=== PATIENT | female | born 1980 | race Caucasian/White ===

== ENCOUNTER → 2018-02-26 02:16 | Outpatient (CLI) | payer BC, SELFPAY ==
--- NOTE | 2018-02-26 14:06 | DI.REPORT_ITS ---
SYMPTOMS/DIAGNOSIS: ELDERLY MULTIGRAVIDA IN SECOND TRIMESTER, O09.522 OBSTETRICAL ULTRASOUND: Many abnormalities cannot be diagnosed. A normal exam does not exclude a congenital anomaly. Radiology No. [id number] LMP: Exam Date: 02/26/18 [facility] wks days on EDC ([facility]) 07/20/18 Confirmed: HISTORY: ---- PREDICTED GESTATIONAL AGE NUMBER 19+3 weeks with a range of 18+3 weeks to 20+3 weeks. 1 Determined by_X__1ST US___LMP___HISTORY PLACENTA PRESENTATION Grade I Cephalic_X__ Anterior___Posterior_X__ Breech____ Right Left Transverse(head right___ Fundal___Low-lying___Previa___ Transverse(head left___ Varying BIOMETRY AMNIOTIC FLUID BPD: 42 mm 18+4 weeks Normal HC: 162 mm 19 weeks AC: 134 mm 18+6 weeks FL: 31 mm 19+4 weeks AMNIOTIC FLUID INDEX >26 WK CRL: mm weeks Cisterna Magna: 4.4 mm CI: 79 RUQ: LUQ Cerebellum: 2.01 cm EFW: 277 grams Percentile: 30th RLQ: LLQ Total: cms Composite AGE= 19 wks EDC by US: 07/23/18 BIOPHYSICAL PROFILE ANATOMY IDENTIFIED SCORE 0/2 Heart: 4-Chamber_X__Rate:BPM 145 LVOT:____X RVOT:__X Amniotic Fluid(>2cms)____ Stomach:___X____ Kidneys:__X Respirations (>30 secs) Bladder:____X____ Post. Fossa:__X Body Flex/Extension 3-vessel cord:_X Ventricles:____X Cord insertion:__X___ Lips:__X__ Extremity Flex/Extension Spinal morphology:____X____Nose:_X___ Total Score= Palate:__X NS=not seen COMMENTS: There is a single living intrauterine gestation. Estimated sonographic age is 19 weeks. No or placental abnormalities are identified. Please refer to the obstetrical ultrasound examination report for complete details. IMPRESSION: Single living intrauterine gestation. Estimated sonographic age is 19 weeks.
== END ==
PROVIDERS: PCP Internal Medicine; Visit Provider Obstetrics & Gynecology
DX: O09.522 Supervision of elderly multigravida, second trimester (principal)
CPT/HCPCS: 76805

== ENCOUNTER 2018-04-30 09:27 | Outpatient (CLI) | payer BC, SELFPAY ==
[2018-04-30 10:02] LABS: HCT 34.9 % (36.0-46.0); HGB 11.9 g/dL (12.0-15.5); Mean Corp. HGB Concentration 34.1 g/dL (32.0-36.0); Mean Corpuscular Hemoglobin 31.4 pg (27.0-33.0); Mean Corpuscular Volume 92.1 fL (80-95); Mean Platelet Volume 11.1 fL (8.0-11.0); Platelet Count 162 x1000/uL (130-400); RBC 3.79 m/cumm (4.00-5.20); RBC Distribution Width 13.8 % (11.7-14.6); White Blood Cell Count 6.56 k/cumm (4.4-10.8)
[2018-04-30 10:10] LABS: Glucose,1 Hr (Glucola) 133 mg/dL (80-140)
== END 2018-04-30 09:47 ==
PROVIDERS: PCP Internal Medicine; Visit Provider Obstetrics & Gynecology Gynecology
DX: O34.219 Maternal care for unspecified type scar from previous cesarean delivery (principal); O09.529 Supervision of elderly multigravida, unspecified trimester
CPT/HCPCS: 36415; 82950; 85027; 86003; 86850; 86900; 86901; 90384

== ENCOUNTER 2018-06-27 17:18 | Outpatient (REF) | payer BC, SELFPAY | END 2018-06-27 17:38 | LOC: LBN 17:18 | PROVIDERS: PCP Internal Medicine; Visit Provider Obstetrics & Gynecology | DX: O34.219 Maternal care for unspecified type scar from previous cesarean delivery (principal); Z36.85 Encounter for antenatal screening for Streptococcus B | CPT/HCPCS: 87081 ==

== ENCOUNTER 2018-07-09 11:47 | Outpatient (CLI) | payer BC, SELFPAY | END 2018-07-09 12:07 | PROVIDERS: PCP Internal Medicine; Visit Provider Obstetrics & Gynecology | DX: O34.219 Maternal care for unspecified type scar from previous cesarean delivery (principal); Z34.93 Encounter for supervision of normal pregnancy, unspecified, third trimester; Z01.818 Encounter for other preprocedural examination ==

== ENCOUNTER 2018-07-15 11:54 | Outpatient (CLI) | payer BC, SELFPAY ==
[2018-07-15 12:24] LABS: HCT 34.9 % (36.0-46.0); Mean Corp. HGB Concentration 34.4 g/dL (32.0-36.0); Mean Corpuscular Hemoglobin 31.8 pg (27.0-33.0); Mean Corpuscular Volume 92.6 fL (80-95); Mean Platelet Volume 11.9 fL (8.0-11.0); Platelet Count 159 x1000/uL (130-400); RBC 3.77 m/cumm (4.00-5.20); RBC Distribution Width 13.6 % (11.7-14.6)
== END 2018-07-15 12:14 ==
PROVIDERS: PCP Internal Medicine; Visit Provider Obstetrics & Gynecology
DX: O34.219 Maternal care for unspecified type scar from previous cesarean delivery (principal); Z01.818 Encounter for other preprocedural examination
CPT/HCPCS: 36415; 85027; 86850; 86900; 86901

== ENCOUNTER 2018-07-16 05:59 | Inpatient (IN) | payer BC, SELFPAY ==
[2018-07-09 12:09] VITALS: BP 122/77; PULSE 94; RESP 18; TEMP 37; O2SAT 97
--- NOTE | 2018-07-15 11:49 | W.PM.HP.N ---
Assessment and Plan (1) Previous delivery, antepartum: Current visit: No Status: Acute (2) Advanced maternal age (AMA) in : Current visit: No Status: Acute (3) Rh negative state in antepartum period: Current visit: No Status: Acute 38 yo RCS r/b/a discussed consent reviewed and signed Rh negative will need rhogham if Rh + History of Present Illness Chief Complaint: RCS Narrative: 38 yo 39+ weeks scheduled for repeat section had counselling re: r/b/a TOLAC vs RCS patient opted for RCS consent signed Review of Systems Review of Systems All systems reviewed & are unremarkable except as noted in HPI and below PFSH Social History Smoking/Tobacco Use Status: Current every day History History 3 Para 1 Hx # Term Pregnancies 1 Multiple births 0 Hx # Pregnancies 0 Ectopic pregnancies 0 AB induced 0 Hx Number of Living Children AB spontaneous 0 Meds Home Medications Medication Instructions Recorded Confirmed Type pediatric multivitamin no.42 2 ea PO DAILY tab.chew 01/08/18 07/09/18 History [[facility]kleber] RhoGAM Ultra-Filtered PLUS 1,500 1,500 unit IM ONCE #1 each NS 05/01/18 07/09/18 Clinic unit (300 mcg) intramuscular syringe calcium carbonate [Tums] 400 mg PO QID 07/09/18 07/15/18 History Allergies Allergy/AdvReac Type Severity Reaction Status Date / Time No Known Drug Allergies Allergy Verified 07/15/18 11:15 Exam Const General: cooperative and healthy appearing Orientation: alert and awake Chest Chest: normal inspection of the chest Resp Effort & Inspection: normal respiratory effort Auscultation: clear to auscultation bilaterally Cardio Rate: regular rate Rhythm: regular rhythm Heart Sounds: S1 normal and S2 normal GI Inspection: other (gravid soft nt/nd fundal height 40 cm) Palpation: other Skin General skin exam: no rashes or lesions noted Neuro General: alert and awake Cranial Nerves: CN's II-XI intact bilaterally Cognition: normal cognition Speech: speech normal Gait: normal gait Extrem General: normal to inspection Results Last Vital Signs Temp 37 C 07/09/18 12:09 Pulse 94 H 07/09/18 12:09 Resp 18 07/09/18 12:09 BP 122/77 07/09/18 12:09 Pulse Ox 97 07/09/18 12:09
[2018-07-16 06:14] VITALS: BP 121/79; PULSE 87; RESP 18; TEMP 35.5; O2SAT 96
[2018-07-16 06:18] VITALS: BP 121/79; PULSE 87; RESP 18; TEMP 35.5; O2SAT 96
[2018-07-16] MEDS: Lactated Ringers 1,000 ML 125 ML IV (06:46)
[2018-07-16] MEDS: Methylergonovine 0.2 MG/ML VIAL (08:09)
[2018-07-16] MEDS: Scopolamine 1 MG/3 DAYS PATCH 1.5 MG TD (10:36)
[2018-07-16] MEDS: Normal Saline Flush 10 ML SYR IVP ×5 (11:41→23:40)
[2018-07-16] MEDS: Ketorolac 30 MG/ML VIAL IVP ×3 (11:42→23:40)
[2018-07-16] MEDS: Ondansetron 4 MG/2 ML VIAL IVP (12:32)
[2018-07-16] MEDS: Calcium Carbonate *TUMS* 500 MG CHEW PO (13:22)
[2018-07-16] MEDS: Lactated Ringers 1,000 ML 120 ML IV (15:09)
[2018-07-16] MEDS: Metoclopramide 10 MG/2 ML VIAL IVP (16:15)
--- NOTE | 2018-07-16 17:01 | ROE_ITS ---
DATE OF PROCEDURE: July 16, 2018 PREOPERATIVE DIAGNOSIS: Prior section, desires elective repeat. POSTOPERATIVE DIAGNOSIS: Same. PROCEDURE: Repeat section low transverse. SURGEON: Sarahi Bonilla M.D. STITCHER SPECIAL MACHINE: Melania Franklin M.D. ANESTHESIA: Spinal. COMPLICATIONS: None. ESTIMATED BLOOD LOSS: 900 cc FLUIDS: 1000 cc LR. URINE OUTPUT: 50 cc COMPLICATIONS: None. FINDINGS: Normal uterus, ovaries, and tubes; viable male infant 3420 grams (7 pounds 9 ounces), Apga rs 8 and 9. PROCEDURE: The patient was taken to the Operating Room where she was properly identified. She was t hen placed in the sitting position and spinal anesthesia was induced without difficulty. The patient was then placed on the operating table in a dorsal supine position with a left lateral tilt. A Fole y catheter was placed and SCD boots were applied. The patient was then prepped and draped. A formal time-out procedure was then performed with all surgical personnel present, confirming patient and pr ocedure. After establishing adequate spinal anesthesia, a Pfannenstiel incision was made approximately 2 cm ab ove the symphysis pubis along the prior scar and carried down to the underlying fascia. The fascia was nicked in the midline and extended sharply bilaterally. The inferior aspect of the fasci a was then grasped bilaterally with the Dia clamps, tented up, and the rectus muscles dissected of f sharply. Attention was turned to the superior aspect and, again, in a similar fashion was grasped bilaterally with Dia clamps, tented up, and the rectus muscles dissected off sharply. The rectus muscles were in the midline. The peritoneum was entered sharply. This was extended superi or inferiorly with good visualization of the bladder. The bladder blade was then positioned. The ve sicouterine peritoneum was grasped with the pickups and entered sharply, the bladder flap was created both sharply and digitally, and the bladder blade was reposition. The lower uterine segment was transversely incised to the underlying uterine cavity. The membranes w ere ruptured for clear fluid and the uterine incision was extended manually. Upon delivering the inf ant's head, the 's head was floating. It was brought to the incision. There was a nuchal cord . A Cherney incision was made on the right rectus muscle, however, the 's vertex did not deliv er. Thus, a Kiwi vacuum was applied to assist delivery of the 's head atraumatically, and shou lders and body followed with ease. The nuchal cord was easily reduced x1. The cord was clamped x2, cut, and the handed off to the [facility] .D. The placenta was manually expressed. The uterus was exteriorized and cleaned of all clots and debris . The uterine incision was closed with #0 Vicryl in a running locked fashion. A second imbricating layer was used to achieve hemostasis. The uterus was slightly boggy, thus the patient received 0.2 m g of subcu Methergine. Upon inspection of the uterine incision, there was bleeding in the midline wh ich was made hemostatic with two interrupted sutures in a [id number] fashion of #0 Vicryl in the midline. The incision was reinspected and found to be hemostatic. The uterus was returned to the a bdomen. The gutters were cleared of all clots and debris. The uterine incision was reinspected and found to be hemostatic. All of the equipment was removed from the abdomen. The peritoneum was closed with #2-0 Vicryl in a running fashion. The muscle was inspected as well as the subfascial layer and found to be hemostatic. The horizontal Cherney incision on the right rectu s muscles was repaired with #0 Vicryl in an interrupted fashion. The muscle was reapproximated with #0 Vicryl x4. The muscle again was reinspected. The subfascial layer was reinspected and found to b e hemostatic. The fascia was closed from each apex and tied in the middle. The subcuticular layer w as copiously irrigated and required a small amount of Bovie cautery to achieve hemostasis. The subcu ticular layer was closed with #3-0 plain in an interrupted fashion and the skin was closed with #4-0 Monocryl on a Addison needle in a subcuticular fashion. Sponge, lap, needle, and instrument counts were correct x2. The patient was taken to Recovery in sta ble condition.
[2018-07-17] MEDS: Ketorolac 30 MG/ML VIAL IVP (04:50)
[2018-07-17 10:23] LABS: HCT 31.8 % (36.0-46.0); HGB 10.7 g/dL (12.0-15.5); Mean Corp. HGB Concentration 33.6 g/dL (32.0-36.0); Mean Corpuscular Hemoglobin 31.4 pg (27.0-33.0); Mean Corpuscular Volume 93.3 fL (80-95); Mean Platelet Volume 12.3 fL (8.0-11.0); Platelet Count 186 x1000/uL (130-400); RBC 3.41 m/cumm (4.00-5.20); RBC Distribution Width 13.4 % (11.7-14.6); White Blood Cell Count 10.91 k/cumm (4.4-10.8)
[2018-07-17] MEDS: Ibuprofen 600 MG TAB PO ×2 (11:38→17:58)
[2018-07-17] MEDS: Acetaminophen 325 MG TAB 650 MG PO (20:03)
--- NOTE | 2018-07-18 07:46 | DSE_ITS ---
Date of service: 07/18/18 Time of Service: 07:44 DS: Diagnosis Discharge Diagnosis (1) Previous delivery, antepartum: Status: Acute (2) Advanced maternal age (AMA) in : Status: Acute (3) Rh negative state in antepartum period: Status: Acute Discharge Plan Disposition Patient Disposition: HOME Condition: Good Discharge Details Admit Date/Time: 07/16/18 05:59 Admit Provider: Sarahi Bonilla Attending Provider: Sarahi Bonilla Primary Care Provider: Luz Elena Barger Home Meds and New Rx's Prescriptions: No Action RhoGAM Ultra-Filtered PLUS 1,500 unit (300 mcg) syringe 1,500 unit IM ONCE Qty: 1 RF: 0 Flintstones Sour Gummies 1 EACH tablet,chewable 2 ea PO DAILY RF: 0 calcium carbonate [Tums] 200 mg calcium (500 mg) Tablet,Chewable 400 mg PO QID RF: 0 Discharge Instructions Additional Instructions: Caring for yourself after a Section Office: Center: Please limit your activity * REST, REST, REST. Try not to do more than you were doing in the hospital for the first week, then gradually increase your activity. * Limit stair climbing for your first week at home * You may take short rides in the car anytime, but do not drive yourself until 2 weeks after your surgery. Begin by taking the car in the driveway or a parking lot. If you cannot sit in the car and turn your body comfortably, it is too soon to drive. Do not drive while taking any narcotic pain medicines. * No lifting greater than 10 to 15 pounds for 6 weeks. * Nothing in your vagina for 6 weeks - this means no tampons or intercourse. Douching is never recommended. You May * Shower and wash your hair at any time. May take a bath once skin incision is healed, usually by 2 to 3 weeks. * Do not scrub your incision until skin incision is healed, but it is okay for it to get wet, then pat dry. * Return to work 6 weeks after your surgery or as discussed with your doctor. Expect * Vaginal bleeding for 6 weeks after surgery. * Some fatigue and mood changes. Baby blues are common in the first few weeks. Remember your body is using its energy to heal your surgical site and your sleep is interrupted by night time feedings. Be gentle with yourself and your partner. If the feelings of sadness continue or get worse, please call us. Call immediately if you have any thoughts of harming yourself or your baby. Drink lots of water * You will need 8 to 10 glasses of water or juice every day to help prevent constipation and keep a good milk supply. Coffee, tea and soda are not good choices for keeping yourself well hydrated. * For constipation, you may use over the counter products such as metamucil, Fibercon, Colace or Milk of Magnesia. Also eat a high fiber diet with lots of fruits and vegetables. Call the office * For any signs of infection such as fever greater than 100.4 degrees Fahrenheit, redness or discharge from the incision or foul smelling vaginal discharge. * For pain that is getting worse instead of better * If you experience any new symptoms such as vomiting * For bleeding that is getting heavier rather than remelt operator * If you are not sure whether you need help and the office is closed, you can call the Center nurses for triage. Medications * Resume any medications you were taking before delivery. * You may use Ibuprofen (Advil, Motrin) 600 mg every 6 hours as needed for pain. If you buy this over the counter it is the same medicine as in a prescription. The over the counter medicine contains 200 mg, so you may take 3 tablets at a time. * Instead of Ibuprofen, you may use Naproxen Sodium (Naprosyn, Aleve). You may take 500 mg every 8 to 12 hours as needed for pain. The over the counter medicine is the same as the prescription. The over the counter type contains 220 mg, so you may take 2 tablets at a time. * Do not take both Ibuprofen AND Naproxen as they are very similar. Take one OR the other. * You may use Acetaminophen (Tylenol) regular strength (325 mg) - take 1 or 2 tablets every 4 hours. You may use this IN ADDITION to Motrin or Naproxen because it works by a different mechanism. Follow up appointments * We would like to see you one week after surgery to check your incision and remove skin fili if you have them. The Center nurses will schedule this appointment for you before you leave the hospital. We will see you again 6 weeks after your surgery for a complete exam. You may schedule that appointment by calling the office. Please call us with any other questions or concerns. Activity:: Activity as Tolerated Equipment/Supplies:: No Equipment Needed Diet:: As Tolerated Discharge Orders Discharge Orders: Discharge Order (Routine); Ordered 07/18/18 Ordered By: Melania Franklin Exam Const General: comfortable Nutritional Appearance: overweight Orientation: alert, awake and oriented x3 Chest Breast inspection: normal inspection of the breasts Resp Effort & Inspection: normal respiratory effort Auscultation: clear to auscultation bilaterally Cardio Rate: regular rate Rhythm: regular rhythm GI Inspection: normal to inspection and scar (well approximated, no ecchymosis, Steri-strips in place.) Palpation: soft General: deferred DS: Data Vitals/I&O Vitals and I&O: Vital Signs Temperature 95.9 F L 07/16/18 06:18 Pulse 87 07/16/18 06:18 Pulse Rhythm Regular 07/16/18 06:18 Respiratory Rate 18 07/16/18 06:18 Respiratory Effort Non-Labored 07/16/18 06:18 Respiratory Depth Normal 07/16/18 06:18 Respiratory Pattern Normal 07/16/18 06:18 Blood Pressure 121/79 07/16/18 06:18 Pulse Oximetry 96 07/16/18 06:18 Oxygen Delivery Method Room Air 07/16/18 06:18 Oxygen Flow Rate 0 07/16/18 06:18 Pain Level 2 07/17/18 21:03 Intake & Output 07/17/18 07/17/18 07/18/18 11:59 23:59 11:59 Intake Total 1000 / 1000 Balance 1000 / 1000 Intake: IV 1000 / 1000 Labs on day of discharge: Labs from last 24 hours 07/17/18 10:06 WBC 10.91 H RBC 3.41 L Hgb 10.7 L Hct 31.8 L MCV 93.3 MCH 31.4 MCHC 33.6 RDW 13.4 Plt Count 186 MPV 12.3 H PFSH Medical History Previous delivery, antepartum (Acute) Advanced maternal age (AMA) in (Acute) Rh negative state in antepartum period (Acute) Tobacco use (Acute) HPV test positive (Acute) (Acute) Surgical History section (Resolved 09/25/12) multiple dental extractions Social History Smoking/Tobacco Use Status: Current every day Female Reproductive History Menstrual control method: permanent sterilization (vasectomy) History History 3 Para 2 Hx # Term Pregnancies 2 Multiple births 0 Hx # Pregnancies 0 Ectopic pregnancies 0 AB induced 0 Hx Number of Living Children AB spontaneous 0
[2018-07-18] MEDS: Acetaminophen 325 MG TAB 650 MG PO (11:36)
[2018-07-18] MEDS: Ibuprofen 600 MG TAB PO (11:36)
== END 2018-07-18 12:00 | disposition home or self-care (01) | DRG 788 ==
LOC: OBS 10:25 → PDS 10:25
PROVIDERS: Obstetrics & Gynecology Gynecology; Admitting Provider Obstetrics & Gynecology; PCP Internal Medicine; Visit Provider Obstetrics & Gynecology
PROC: 10D00Z1 Extraction of Products of Conception, Low, Open Approach (ICD-10-PCS; CPT 59514; principal; 2018-07-16 07:30)
DX: O34.211 Maternal care for low transverse scar from previous cesarean delivery (principal); Z37.0 Single live birth; O69.81X0 Labor and delivery complicated by cord around neck, without compression, not applicable or unspecified; Z67.91 Unspecified blood type, Rh negative; Z3A.39 39 weeks gestation of pregnancy; O99.334 Smoking (tobacco) complicating childbirth; F17.210 Nicotine dependence, cigarettes, uncomplicated; O12.05 Gestational edema, complicating the puerperium
CPT/HCPCS: 59514; 36415; 85027; 99238; NC; J0690; J1885; J2210; J2370; J2405; J2590; J2765; J3010